=== PATIENT | female | born 1995 | race Caucasian/White ===

== ENCOUNTER 2018-03-31 19:32 | Emergency (ER) | payer MEDICAID ==
[2018-03-31 20:52] LABS: #Eosinphils 0.2 thou/uL (0.0-0.7); #Monocytes 0.7 thou/uL (0.11-0.59); #Neutrophils 9.4 thou/uL (1.40-6.50); %Basophils 0.4 % (0.0-1.0); %Eosinophils 1.9 % (0.0-10.0); %Lymphocytes 16.3 % (21.0-51.0); %Monocytes 5.9 % (0.0-10.0); %Neutrophils 75.6 % (42.0-75.0); Hemoglobin 10.4 g/dL (12.0-16.0); Mean Corpuscular HGB CONC 35.7 g/dL (32.0-36.0); Mean Corpuscular Hemoglobin 31.3 pg (27.0-31.0); Mean Corpuscular Volume 87.7 fL (78.0-98.0); Mean Platelet Volume 7.2 fL (7.4-10.4); Platelet Count 198 thou/uL (130-400); Red Blood Cell (RBC) Count 3.32 mill/uL (4.20-5.40); White Blood Cell (WBC) Count 12.4 thou/uL (4.8-10.8)
[2018-03-31] MEDS ORDERED: Metoclopramide HCl 10 MG/2 ML VIAL ONE (20:52)
[2018-03-31] MEDS ORDERED: diphenhydrAMINE 50 MG/ML VIAL ONE (20:58)
[2018-03-31 20:59] LABS: Bilirubin Negative (Negative); Blood, Urine Trace (Negative); Clarity CLOUDY (Clear); Glucose, Urine (Dipstick) Negative (Negative); Leukocyte Small (Negative); Nitrite Negative (Negative); Protein, Urine (Dipstick) Negative (Neg-Trace); Specific Gravity, Urine 1.014 (1.002-1.036); Urobilinogen 0.2 mg/dL (0.2-1.0); pH, Urine 6.5 (5.0-9.0)
[2018-03-31 21:01] LABS: Bacteria/HPF None Seen HPF (None Seen); Hyaline Casts/LPF 0-3 HYALINE CAST LPF (0-3 Hyaline); Pathc Cast-AUWi Flag 0.58 (0-2.49)
[2018-03-31 21:11] LABS: ALT (SGPT) 12 U/L (8-55); AST (SGOT) 15 U/L (5-34); Albumin 3.6 g/dL (3.5-5.0); Alkaline Phosphatase 55 U/L (40-150); Anion Gap 11 mmol/L (10-20); BUN (Urea Nitrogen) 6 mg/dL (7.0-18.7); Bilirubin, Total 0.5 mg/dL (0.2-1.2); Calc. Creatinine Clearance 0 mL/min (70-130); Calcium 8.7 mg/dL (7.8-10.44); Carbon Dioxide 22 mmol/L (22-29); Chloride 106 mmol/L (98-107); Estimated GFR-MDRD Greater than 90; Glucose 88 mg/dL (70-105); Lipase 7 U/L (8-78); Potassium 3.4 mmol/L (3.5-5.1); Protein, Total 6.6 g/dL (6.0-8.3); Sodium 136 mmol/L (136-145)
[2018-03-31 22:37] LABS: Bilirubin Negative (Negative); Blood, Urine Trace (Negative); Clarity CLOUDY (Clear); Glucose, Urine (Dipstick) Negative (Negative); Leukocyte Small (Negative); Nitrite Negative (Negative); Protein, Urine (Dipstick) Negative (Neg-Trace); Specific Gravity, Urine 1.008 (1.002-1.036); Urobilinogen 0.2 mg/dL (0.2-1.0); pH, Urine 6.5 (5.0-9.0)
[2018-03-31 22:39] LABS: Bacteria/HPF None Seen HPF (None Seen); Hyaline Casts/LPF 0-3 HYALINE CAST LPF (0-3 Hyaline); Pathc Cast-AUWi Flag 0.43 (0-2.49); RBC/HPF 0-3 HPF (0-3)
== END 2018-03-31 22:42 | disposition home or self-care (01) ==
LOC: ERS 19:32
DX: O21.2 Late vomiting of pregnancy (principal); O99.89 Other specified diseases and conditions complicating pregnancy, childbirth and the puerperium; R19.7 Diarrhea, unspecified; Z3A.21 21 weeks gestation of pregnancy
CPT/HCPCS: 36415; 80053; 81003; 81015; 83690; 85025; 87086; 96365; 96366; 96375; J1200; J2765

== ENCOUNTER 2018-07-26 12:12 | Inpatient (IN) | payer MEDICAID, OTHER ==
[2018-07-26 13:04] VITALS: BMI 29.8
[2018-07-26] MEDS ORDERED: Docusate 100 MG CAP PO PRN (13:35)
[2018-07-26] MEDS ORDERED: Misoprostol 200 MCG TAB PR PRN (13:35)
[2018-07-26] MEDS ORDERED: Methylergonovine 0.2 MG/ML VIAL IM PRN (13:35)
[2018-07-26] MEDS ORDERED: Promethazine HCl 25 MG/ML VIAL IM PRN ×2 (13:35→21:35)
[2018-07-26] MEDS ORDERED: Diphenoxylate HCl/Atropine Tablet PO PRN ×3 (13:35→22:35)
[2018-07-26] MEDS ORDERED: HYDROcodone/Acetaminophen 5/325 mg Tablet PO PRN ×4 (13:35→21:35)
[2018-07-26] MEDS ORDERED: Lidocaine 1% (PF) 30 ML VIAL SC PRN (13:35)
[2018-07-26] MEDS ORDERED: Carboprost 250 MCG/ML AMP IM PRN (13:35)
[2018-07-26] MEDS ORDERED: NS / Oxytocin 40 units/1000ml 1,000 ML IV PRN (13:35)
[2018-07-26] MEDS ORDERED: Ibuprofen 800 MG TAB PO PRN (13:35)
[2018-07-26] MEDS ORDERED: Ondansetron PF 4 MG/2 ML Vial IVP PRN ×2 (13:35→21:35)
[2018-07-26] MEDS ORDERED: Lactated Ringer's 1,000 ML IV SCH (13:45)
[2018-07-26] MEDS ORDERED: NS w/ Oxytocin 10 units 500 ML IV SCH ×2 (13:45)
[2018-07-26 13:49] LABS: Hemoglobin 7.9 g/dL (12.0-16.0); Mean Corpuscular HGB CONC 30.7 g/dL (32.0-36.0); Mean Corpuscular Hemoglobin 21.7 pg (27.0-31.0); Mean Corpuscular Volume 70.9 fL (78.0-98.0); Mean Platelet Volume 11.7 fL (7.4-10.4); Platelet Count 191 thou/uL (130-400); RBC Distribution Width 16.8 % (11.5-14.5); Red Blood Cell (RBC) Count 3.61 mill/uL (4.20-5.40); White Blood Cell (WBC) Count 10.2 thou/uL (4.8-10.8)
[2018-07-26 14:33] LABS: Syphilis Antibody Nonreactive (Nonreactive); Syphilis Antibody Index 0.04 S/CO (<1.00 Non-Reactive)
[2018-07-26 14:34] LABS: HBSAg Index 0.23 S/CO (0-0.99); Hep B Surf Ag Non-Reactive S/CO (NonReactive)
--- NOTE | 2018-07-26 15:41 | PDOC.EVN ---
Event Note - Event Note Event Note: Asked to AROM by Dr. Alonzo. SVE 5 cm, vtx. FHTs stable. UCs q 2-3 min. AROM- small amt. clear fluid. Dr. alonzo aware.
[2018-07-26] MEDS ORDERED: Fentanyl 4 mcg/Bup 0.1% Cadd 100 ML ONE (16:57)
[2018-07-26] MEDS ORDERED: Bupivacaine HCl 0.5%/Epinephrine 1:200,000/PF 30 ml Vial ONE (21:00)
[2018-07-26] MEDS ORDERED: Lanolin Ointment 7 GM TUBE TOP PRN (21:35)
[2018-07-26] MEDS ORDERED: NS / Oxytocin 40 units/1000ml 1,000 ML IV SCH (21:35)
[2018-07-26] MEDS ORDERED: Zolpidem Tartrate 5 MG TAB PO PRN (21:35)
[2018-07-26] MEDS ORDERED: Preparation H Ointment 28 GM TUBE PR PRN (21:35)
[2018-07-26] MEDS ORDERED: Milk Of Magnesia 30 ML UDCUP PO PRN (21:35)
[2018-07-26] MEDS ORDERED: Benzocaine/Menthol 20-0.5% 60 ML CAN TOP PRN (21:35)
[2018-07-26] MEDS ORDERED: diphenhydrAMINE 25 MG CAP PO PRN (21:35)
[2018-07-26] MEDS ORDERED: Bisacodyl 10 MG SUPP PR PRN (21:35)
[2018-07-26] MEDS: Ibuprofen 800 MG TAB PO SCH (21:52)
[2018-07-26] MEDS ORDERED: Diphenoxylate HCl/Atropine Tablet PO SCH (22:45)
[2018-07-27] MEDS: Ibuprofen 800 MG TAB PO SCH ×3 (06:37→21:31)
[2018-07-27 06:43] LABS: Hemoglobin 7.5 g/dL (12.0-16.0); Mean Corpuscular HGB CONC 31.8 g/dL (32.0-36.0); Mean Corpuscular Hemoglobin 22.6 pg (27.0-31.0); Mean Corpuscular Volume 71.1 fL (78.0-98.0); Mean Platelet Volume 11.4 fL (7.4-10.4); Platelet Count 169 thou/uL (130-400); RBC Distribution Width 16.4 % (11.5-14.5); White Blood Cell (WBC) Count 12.5 thou/uL (4.8-10.8)
[2018-07-27] MEDS ORDERED: Adacel (T-DAP) 0.5 ML SYRINGE IM ONE (09:00)
[2018-07-27] MEDS ORDERED: Varicella virus, LIVE 0.5 ML VIAL SC ONE (09:00)
[2018-07-27] MEDS ORDERED: Measles/Mumps/Rubella 10 MCG/0.5 ML VIAL SC ONE (09:00)
[2018-07-27] MEDS: Ferrous Sulfate 325 MG TAB PO SCH ×2 (10:18→17:53)
[2018-07-27] MEDS: Docusate Calcium (SURFAK) 240 MG CAP PO SCH ×2 (10:18→21:31)
[2018-07-27] MEDS: Prenatal Vitamin 1 TAB PO SCH (10:18)
--- NOTE | 2018-07-27 20:20 | PDOC.LDHP ---
Labor and Delivery H&P Current gestational age (weeks): 38 Due date: 08/09/18 Grav: 4 Para: 3 Current complications: oligohydramnios Abnormal US findings: Yes (oligohydramnios) Current medications: pre- vitamins Allergies/Adverse Reactions: Allergies Allergy/AdvReac Type Severity Reaction Status Date / Time No Known Drug Allergies Allergy Verified 07/26/18 13:00 Social history: none - Physical Exam Vital signs reviewed and normal: yes General: NAD, breathing through contractions Heart: RRR Lungs: nonlabored breathing Abdomen: NTTP Extremeties: trace edema FHT: category 1 - Vaginal Exam cm dilated: 5 Effacement: 90% Station: -1 - Assessment L&D Assessment: term patient in labor - Plan Plan: admit to L&D, labor augmentation if indicated
--- NOTE | 2018-07-27 20:22 | PDOC.PP ---
Post Progress Note Post Day #: 1 PO intake tolerated: yes Flatus: yes Ambulation: yes Vital Signs (12 hours) Temp Pulse Resp BP Pulse Ox 07/27/18 17:14 97.7 F 65 16 114/76 98 07/27/18 11:59 97.6 F 74 20 111/62 07/27/18 08:25 98 Weight Weight 163 lb - Physical Examination General: NAD Cardiovascular: no m/r/g, RRR Respiratory: clear to auscultation bilaterally Abdominal: + bowel sounds, lochia, no distention Extremities: negative homans (B) Neurological: no gross focal deficits Psychiatric: A&Ox3, normal affect (DC in morning.) Result Diagrams: 07/27/18 06:02 Additional Labs: Post Labs Blood Type A POSITIVE 07/26/18 13:14 Hep Bs Antigen Non-Reactive S/CO (NonReactive) 07/26/18 13:14
--- NOTE | 2018-07-28 03:22 | OP ---
DATE OF PROCEDURE: 07/26/2018 PREOPERATIVE DIAGNOSES: Intrauterine at 38 weeks and 0 days with a diagnosis of oligohydramnios as well as early labor with dilatation of the cervix at 5 cm. POSTOPERATIVE DIAGNOSES: Intrauterine at 38 weeks and 0 days with a diagnosis of oligohydramnios as well as early labor with dilatation of the cervix at 5 cm. PROCEDURE PERFORMED: Spontaneous vaginal delivery over intact perineum. FINDINGS: A viable female infant weighing 3512 g, 7 pounds, 12 ounces, Apgars of 9 and 9. QUANTITATIVE BLOOD LOSS: 300 mL. COMPLICATIONS: None. PROCEDURE IN DETAIL: The patient presented to [facility] where she was admitted to the labor and delivery service. The patient underwent a normal and uneventful labor with normal cervical dilatation until she was found to be completely dilated. She was then allowed to push and was able to bring the baby down and delivered the baby in a vertex presentation without difficulties. Once the head delivered in occiput anterior position, the shoulders followed spontaneously along with the rest of the baby's body. Once out the baby's mouth and nose were bulb suctioned. The cord was clamped and cut and baby was handed to waiting attendants. Cord blood was collected. Gentle fundal massage was performed and the placenta delivered intact without problems. Hemostasis was assured. Quantitative blood loss was calculated. Inspection of the cervix, vaginal vault, and perineum did not reveal any lacerations needing suturing. Once again, hemostasis was within normal limits and the patient was allowed to recover in the labor and delivery room. Baby went to nursery. Job ID: [id number]
[2018-07-28] MEDS: Ibuprofen 800 MG TAB PO SCH (05:56)
[2018-07-28 08:04] VITALS: BP 119/76; TEMP 98
[2018-07-28] MEDS: Docusate Calcium (SURFAK) 240 MG CAP PO SCH (09:29)
[2018-07-28] MEDS: Prenatal Vitamin 1 TAB PO SCH (09:29)
[2018-07-28] MEDS: Ferrous Sulfate 325 MG TAB PO SCH (09:29)
== END 2018-07-28 13:34 | disposition home or self-care (01) | DRG 807 ==
LOC: L&D 12:12 → 3SW 21:18
PROVIDERS: ADMIT Obstetrics & Gynecology; ATTEND Obstetrics & Gynecology
PROC: 10E0XZZ Delivery of Products of Conception, External Approach (ICD-10-PCS; principal; 2018-07-26)
PROC: 10907ZC Drainage of Amniotic Fluid, Therapeutic from Products of Conception, Via Natural or Artificial Opening (ICD-10-PCS; 2018-07-26)
DX: O41.03X0 Oligohydramnios, third trimester, not applicable or unspecified (principal); Z37.0 Single live birth; Z3A.38 38 weeks gestation of pregnancy
CPT/HCPCS: 36415; 51701; 85027; 86780; 86850; 86900; 86901; 87340; 90471; 90686; 90715; G0008; J0670; J2001